=== PATIENT | female | born 1935 | race Caucasian/White ===

== ENCOUNTER 2017-01-25 11:30 | Inpatient (IN) | payer MEDICARE ==
[~2017-01-25] VITALS: Ht 167.6 cm; Wt 59.4 kg
[2017-01-25] MEDS ORDERED: PLEASE ENTER ALLERGIES MC SCH ×2 (12:00)
[2017-01-25] MEDS ORDERED: ASPIRIN 81 MG TABLET CHEW PO ONE (12:00)
[2017-01-25] MEDS ORDERED: PLEASE ENTER HEIGHT AND WEIGHT MC SCH (12:00)
[2017-01-25] MEDS ORDERED: SODIUM CHLORIDE FLUSH 10ML SYR IVF ONE (12:00)
[2017-01-25 12:08] LABS: ASPARTATE AMINO TRANSFERASE 12 U/L (15-37); BLOOD UREA NITROGEN 11 mg/dL (7-18)
[2017-01-25] MEDS ORDERED: AMLO5TAB2 PO (12:11)
[2017-01-25] MEDS ORDERED: PROP80TA PO (12:11)
[2017-01-25 12:14] LABS: IS PT STATUS REG ER OR PRE ER? YES
[2017-01-25] MEDS ORDERED: ASPIRIN 81 MG TABLET CHEW ONE (12:59)
[2017-01-25] MEDS ORDERED: DOCUSATE 100 MG CAPSULE PO PRN (14:30)
[2017-01-25] MEDS ORDERED: ONDANSETRON 2MG/ML, 2ML IVP PRN (14:30)
[2017-01-25] MEDS ORDERED: OXYcodone IR 5MG TABLET PO PRN (14:30)
[2017-01-25] MEDS ORDERED: BISACODYL 10 MG SUPP PR PRN (14:30)
[2017-01-25] MEDS ORDERED: ENALAPRILAT 1.25 MG/ML, 2ML IVPush PRN (14:30)
[2017-01-25] MEDS ORDERED: POLYETHYLENE GLYCOL 17 GM PACKET PO PRN (14:30)
[2017-01-25] MEDS ORDERED: ACETAMINOPHEN 325 MG TABLET PO PRN (14:30)
[2017-01-25] MEDS ORDERED: MORPHINE SULFATE 4 MG/ML, 1ML IVPush PRN (14:30)
[2017-01-25] MEDS ORDERED: NITROGLYCERIN 0.4 MG BOTTLE (25 TABS) SL PRN (15:00)
[2017-01-25 15:28] VITALS: BP 173/100
[2017-01-25 17:07] VITALS: BP 168/83
[2017-01-25] MEDS: LOSARTAN 25MG TABLET PO SCH ×2 (17:09→20:39)
[2017-01-25] MEDS: ENOXAPARIN 40 MG/0.4 ML SQ SCH (17:10)
[2017-01-25] MEDS ORDERED: GLUC480L2 PO (17:13)
[2017-01-25 19:32] VITALS: BP 141/86
[2017-01-25 20:01] LABS: IS PT STATUS REG ER OR PRE ER? NO
[2017-01-25] MEDS: PROPRANOLOL 40 MG TABLET PO SCH (20:39)
[2017-01-25] MEDS ORDERED: AMLODIPINE 5 MG TABLET PO SCH ×2 (21:00)
[2017-01-25] MEDS ORDERED: PROPRANOLOL 40 MG TABLET PO SCH (21:00)
[2017-01-26 01:22] LABS: IS PT STATUS REG ER OR PRE ER? NO
[2017-01-26 02:00] VITALS: BP 149/88
[2017-01-26] MEDS ORDERED: ASPIRIN 325 MG TABLET EC PO SCH (06:00)
[2017-01-26 06:13] LABS: ASPARTATE AMINO TRANSFERASE 12 U/L (15-37); BLOOD UREA NITROGEN 16 mg/dL (7-18)
[2017-01-26 06:59] VITALS: BP 144/76
[2017-01-26 08:00] VITALS: BP 144/76
[2017-01-26] MEDS ORDERED: CEFTRIAXONE PMX 1GM/50ML 50 ML IV SCH (09:30)
[2017-01-26] MEDS ORDERED: REGADENOSON 0.4 MG/5 ML SYRINGE ONE (09:37)
[2017-01-26] MEDS: LOSARTAN 25MG TABLET PO SCH (11:47)
[2017-01-26] MEDS: PROPRANOLOL 40 MG TABLET PO SCH (11:47)
[2017-01-26] MEDS: ENOXAPARIN 40 MG/0.4 ML SQ SCH (14:30)
[2017-01-26 15:27] VITALS: BP 158/87
[2017-01-26] MEDS ORDERED: LOSA1TAB16 PO (15:58)
[2017-01-26] MEDS ORDERED: CEFD300C2 PO (15:58)
[2017-01-26] MEDS ORDERED: ACET325T14 PO (15:58)
== END 2017-01-26 17:03 | disposition home or self-care (01) | DRG 305 ==
LOC: ED 12:09 → EDIP 13:33 → 5SO 15:22
PROVIDERS: ADMIT Internal Medicine; ATTEND Internal Medicine
PROC: 0T9B70Z Drainage of Bladder with Drainage Device, Via Natural or Artificial Opening (ICD-10-PCS; principal; 2017-01-25)
DX: I10 Essential (primary) hypertension (principal); M79.1 Myalgia; N30.90 Cystitis, unspecified without hematuria; G43.909 Migraine, unspecified, not intractable, without status migrainosus; I07.1 Rheumatic tricuspid insufficiency; Z88.0 Allergy status to penicillin; Z88.7 Allergy status to serum and vaccine; Z88.8 Allergy status to other drugs, medicaments and biological substances; Z79.899 Other long term (current) drug therapy; Z90.12 Acquired absence of left breast and nipple
CPT/HCPCS: 36415; 71010; 78452; 80053; 80061; 81001; 83036; 83735; 83880; 84439; 84443; 84484; 85025; 85379; 85610; 85730; 87086; 93005; 93017; 93306; J0696; J2785; A9502; C9898